=== PATIENT | male | born 1940 | race American Indian/Alaskan Native ===

== ENCOUNTER 2019-10-23 21:18 | Emergency (ER) | payer MEDICARE ==
--- NOTE | 2019-10-23 22:57 | Emergency Department Report ---
ED Fall HPI - General Chief Complaint: Fall Stated Complaint: GENERAL WEAKNESS Time Seen by Provider: 10/23/19 22:49 Source: patient, EMS Mode of arrival: Stretcher Limitations: No Limitations - History of Present Illness Initial Comments: Mr. Younger is a 79-year-old male with history of schizophrenia hypertension and Parkinson's disease and diabetes mellitus who presents from [facility] after ground-level fall. He walked fell while attempting to go to the bathroom. Since that time he appeared more sluggish than normal. Daughter at bedside states that he is at his baseline. Mr. Younger states he has a mild cramp in his neck. Otherwise he has been in normal state of health. Denies any pain after the fall MD Complaint: fall -: This evening Fall From: standing When Fall Occurred: 1-[address] Fall Occurred: home Loss of Consciousness: none Prolonged Down Time?: no Symptoms Prior to Fall: none Severity: mild Context: tripped/slipped Associated Symptoms: other ("Sluggishness") - Related Data Allergies Allergy/AdvReac Type Severity Reaction Status Date / Time No Known Allergies Allergy Unverified 07/17/14 14:31 ED Review of Systems ROS: Stated complaint: GENERAL WEAKNESS Other details as noted in HPI Comment: All other systems reviewed and negative Constitutional: denies: fever, malaise Respiratory: denies: cough Cardiovascular: denies: chest pain Gastrointestinal: denies: abdominal pain Neurological: denies: headache, numbness, paresthesias ED Past Medical Hx - Past Medical History Previous Medical History?: Yes Hx Hypertension: Yes Hx Diabetes: Yes Hx Psychiatric Treatment: Yes (schizophrenia paranoid) Hx Dementia: Yes Additional medical history: parkinsons - Social History Smoking Status: Current Every Day Smoker ED Physical Exam - General Limitations: No Limitations General appearance: alert, in no apparent distress, other (GCS 15) - Head Head exam: Present: atraumatic, normocephalic - Eye Eye exam: Present: normal appearance, PERRL. Absent: scleral icterus, conjun ctival injection - ENT ENT exam: Present: mucous membranes moist - Neck Neck exam: Present: normal inspection, full ROM. Absent: tenderness, meningismus - Respiratory Respiratory exam: Present: normal lung sounds bilaterally. Absent: respiratory distress, wheezes, rales, rhonchi - Cardiovascular Cardiovascular Exam: Present: regular rate, normal rhythm, normal heart sounds. Absent: rubs, gallop - GI/Abdominal GI/Abdominal exam: Present: soft. Absent: distended, tenderness, guarding, rebound - Extremities Exam Extremities exam: Present: normal inspection - Back Exam Back exam: Present: normal inspection - Neurological Exam Neurological exam: Present: alert, oriented X3 - Psychiatric Psychiatric exam: Present: normal affect, normal mood - Skin Skin exam: Present: warm, dry, intact, normal color. Absent: rash ED Course Vital Signs 10/23/19 22:20 Temperature 98.3 F Pulse Rate 52 L Respiratory 18 Rate Blood Pressure 155/84 [Left] O2 Sat by Pulse 97 Oximetry ED Medical Decision Making - Lab Data Result diagrams: 10/23/19 23:00 10/23/19 23:00 - Radiology Data Radiology results: report reviewed CT head, CT cervical spine: No acute findings according to radiology Radiologist impression of CT head and cervical spine CT cervical spine no acute fracture seen in the cervical spine, diffuse cervical spondylosis no soft tissue swelling no spinal canal stenosis, positive emphysematous changes noted in the lung apices CT head: No acute intracranial abnormality - Medical Decision Making Mr. Younger presents after a ground-level fall. CT head and C-spine CBC chemistry all within acceptable limits. No evidence of acute traumatic injury after evaluation performed here in emergency department. No evidence of acute medical condition. Discharged home in stable condition. CBC chemistry unremarkable with exception of mild thrombocytopenia. Critical care attestation.: If time is entered above; I have spent that time in minutes in the direct care of this critically ill patient, excluding procedure time. ED Disposition Clinical Impression: Fall Disposition: DC-01 TO HOME OR SELFCARE Is pt being admited?: No Does the pt Need Aspirin: No Condition: Stable Instructions: Fall Prevention for Older Adults (ED) Referrals: PRIMARY CARE, [Referring] - 3-5 Days
[2019-10-23 23:11] LABS: Basophils # (Auto) 0.1 K/mm3 (0.0-0.1); Basophils % (Auto) 0.6 % (0.0-1.8); Eosinophils # (Auto) 0.2 K/mm3 (0.0-0.4); Eosinophils % (Auto) 2.2 % (0.0-4.3); Hematocrit 42.4 % (35.5-45.6); Hemoglobin 14.9 gm/dl (11.8-15.2); Lymphocytes # (Auto) 3.4 K/mm3 (1.2-5.4); Lymphocytes % (Auto) 35.7 % (13.4-35.0); Mean Corpuscular HGB Conc 35 % (32-34); Mean Corpuscular Volume 95 fl (84-94); Monocytes # (Auto) 1.3 K/mm3 (0.0-0.8); Monocytes % (Auto) 13.8 % (0.0-7.3); Red Blood Count 4.47 M/mm3 (3.65-5.03); Red Cell Distribution Width 13.4 % (13.2-15.2)
[2019-10-23 23:30] LABS: BUN/Creatinine Ratio 8; Blood Urea Nitrogen 10 mg/dL (9-20); Calcium 8.8 mg/dL (8.4-10.2); Hemolysis Index 28
[2019-10-23 23:52] LABS: Platelet Count 84 K/mm3 (140-440)
--- NOTE | 2019-10-23 23:57 | Cat Scan Report ---
CT cervical spine wo con INDICATION: fall neck pain. TECHNIQUE: All CT scans at this location are performed using the following dose modulation technique: Automated exposure control. COMPARISON: None available. FINDINGS: No acute fracture is seen in the cervical spine. There is diffuse cervical spondylosis. No prevertebr al soft tissue swelling is seen. No spinal canal stenosis is seen. Emphysematous changes are noted wi thin the lung apices. Paraspinous musculature is unremarkable. IMPRESSION: 1. No acute fracture is seen in the cervical spine. Signer Name: Krishan Reyez MD Signed: 10/23/2019 11:53 PM Workstation Name: [id number]
--- NOTE | 2019-10-24 00:01 | Cat Scan Report ---
CT HEAD WITHOUT CONTRAST INDICATION: fall sluggish elderly. TECHNIQUE: All CT scans at this location are performed using CT dose reduction for ALARA by means of automated e xposure control. COMPARISON: None available. FINDINGS: HEMORRHAGE: None. EXTRA-AXIAL SPACES: Normal in size and morphology for the patient's age. VENTRICULAR SYSTEM: Normal in size and morphology for the patient's age. BRAIN PARENCHYMA: No acute findings. MIDLINE SHIFT OR HERNIATION: None. ORBITS: Normal as visualized. SOFT TISSUES OF HEAD: Normal. CALVARIUM: Normal. VISUALIZED PARANASAL SINUSES AND MASTOID AIR CELLS: Clear. ADDITIONAL FINDINGS: None. IMPRESSION: 1. No acute intracranial abnormality. Signer Name: Krishan Reyez MD Signed: 10/23/2019 11:56 PM Workstation Name: [id number]
[2019-10-24 01:47] VITALS: BP 147/86
== END 2019-10-24 01:46 | disposition home or self-care (01) ==
LOC: ED 21:18
DX: R25.2 Cramp and spasm (principal); E11.9 Type 2 diabetes mellitus without complications; I10 Essential (primary) hypertension; F20.9 Schizophrenia, unspecified; G31.83 Neurocognitive disorder with Lewy bodies; F02.80 Dementia in other diseases classified elsewhere, unspecified severity, without behavioral disturbance, psychotic disturbance, mood disturbance, and anxiety; W18.39XA Other fall on same level, initial encounter; Y93.89 Activity, other specified; Y92.098 Other place in other non-institutional residence as the place of occurrence of the external cause; Y99.8 Other external cause status
CPT/HCPCS: 36415; 70450; 72125; 80048; 85025

== ENCOUNTER 2020-07-12 17:31 | Emergency (ER) | payer MEDICARE ==
--- NOTE | 2020-07-12 20:15 | Emergency Department Report ---
ED Neck Pain/Injury HPI - General Chief Complaint: Neck Pain/Injury Stated Complaint: NECK PAIN Time Seen by Provider: 07/12/20 20:03 Source: patient Mode of arrival: Stretcher Limitations: Altered Mental Status - History of Present Illness Initial Comments: Patient is a 79-year-old male that presents emergency room for a fall and neck pain. Patient states he fell at 5 PM today. Patient states he is having some stiffness in his neck. Patient denies loss of consciousness.. Patient states his pain is mild to moderate. Patient states is an aching pain. Patient states he just feels stiff. Patient denies fever and chills. Patient denies loss of consciousness. Patient denies head injury. Patient denies headache. Patient denies difficulties moving. Patient has history of dementia, schizophrenia, hypertension, hyperlipidemia, diabetes,. Patient presents ER with his records from his halfway. Patient is coming from [facility]. Patient brought in by EMS. Patient denies recent travel. Patient denies recent international travel. Patient denies exposure to the novel coronavirus. Patient denies sick contacts. Patient denies fever and chills. Patient denies cough. Patient denies diarrhea. Patient denies coming in contact with anybody with symptoms of the novel coronavirus. MD Complaint: neck pain, neck injury -: Sudden Place: home Severity: mild, moderate, constant Quality: aching Consistency: constant Improves With: rest supine, remaining still Worsens With: movement of neck Context: fall Associated Symptoms: denies: headache, fever, numbness, tingling, weakness, vertigo, difficulty walking, swollen glands, difficulty swallowing, nausea, vomiting Treatments Prior to Arrival: none - Related Data Previous Rx's Medication Instructions Recorded Last Taken Type Cyclobenzaprine HCl [Flexeril 5 MG 5 mg PO TID PRN #20 tab 07/12/20 Unknown Rx TAB] Allergies Allergy/AdvReac Type Severity Reaction Status Date / Time No Known Allergies Allergy Unverified 07/17/14 14:31 ED Review of Systems ROS: Stated complaint: NECK PAIN Other details as noted in HPI Constitutional: denies: chills, fever Eyes: denies: eye pain, eye discharge, vision change ENT: denies: ear pain, throat pain Respiratory: denies: cough, shortness of breath, wheezing Cardiovascular: denies: chest pain, palpitations Endocrine: no symptoms reported Gastrointestinal: denies: abdominal pain, nausea, diarrhea Genitourinary: denies: urgency, dysuria Musculoskeletal: denies: back pain, joint swelling, arthralgia Skin: denies: rash, lesions Neurological: denies: headache, weakness, paresthesias Psychiatric: denies: anxiety, depression Hematological/Lymphatic: denies: easy bleeding, easy bruising ED Past Medical Hx - Past Medical History Previous Medical History?: Yes Hx Hypertension: Yes Hx Diabetes: Yes (neuropathy) Hx Psychiatric Treatment: Yes (schizophrenia paranoid) Hx Dementia: Yes Additional medical history: parkinsons - Surgical History Past Surgical History?: No - Family History Family history: no significant - Social History Smoking Status: Unknown if ever smoked Substance Use Type: None - Medications Home Medications: Home Medications Medication Instructions Recorded Confirmed Last Taken Type Cyclobenzaprine HCl [Flexeril 5 MG 5 mg PO TID PRN #20 tab 07/12/20 Unknown Rx TAB] ED Physical Exam - General Limitations: No Limitations General appearance: alert, in no apparent distress - Head Head exam: Present: atraumatic, normocephalic - Eye Eye exam: Present: normal appearance, PERRL Pupils: Present: normal accommodation - ENT ENT exam: Present: normal exam, mucous membranes moist, TM's normal bilaterally, normal external ear exam - Neck Neck exam: Present: normal inspection, full ROM. Absent: tenderness, meningismus, lymphadenopathy, thyromegaly - Respiratory Respiratory exam: Present: normal lung sounds bilaterally. Absent: respiratory distress, wheezes, rales - Cardiovascular Cardiovascular Exam: Present: regular rate, normal rhythm. Absent: systolic murmur, diastolic murmur, rubs, gallop - GI/Abdominal GI/Abdominal exam: Present: soft, normal bowel sounds. Absent: distended, tenderness, guarding, rebound - Rectal Rectal exam: Present: deferred - Extremities Exam Extremities exam: Present: normal inspection - Back Exam Back exam: Present: normal inspection, full ROM. Absent: tenderness, CVA tenderness (R), CVA tenderness (L), muscle spasm, paraspinal tenderness, vertebral tenderness - Neurological Exam Neurological exam: Present: alert, oriented X3, CN II-XII intact, reflexes normal. Absent: motor sensory deficit - Psychiatric Psychiatric exam: Present: normal affect, normal mood - Skin Skin exam: Present: warm, dry, intact, normal color. Absent: rash ED Course Vital Signs 07/12/20 07/12/20 07/12/20 18:34 18:38 18:42 Temperature 99.4 F Pulse Rate 63 Respiratory 15 16 Rate Blood Pressure Blood Pressure 147/87 [Left] O2 Sat by Pulse 98 Oximetry 07/12/20 07/12/20 07/12/20 18:45 19:00 19:30 Temperature Pulse Rate 78 Respiratory 12 15 Rate Blood Pressure 147/87 137/91 136/84 Blood Pressure [Left] O2 Sat by Pulse 98 96 96 Oximetry 07/12/20 07/12/20 07/12/20 20:01 20:30 21:23 Temperature Pulse Rate 56 L Respiratory 16 Rate Blood Pressure 135/88 134/83 Blood Pressure 105/75 [Left] O2 Sat by Pulse 96 94 98 Oximetry - Reevaluation(s) Reevaluation #1: I discussed all results and clinical findings with patient. I discussed plan of care with patient. Patient agrees with plan of care. Patient is stable for discharge. Patient will be discharged home. Patient given discharge instr uctions. Patient voiced understanding of discharge instructions. 07/12/20 23:40 ED Medical Decision Making - Radiology Data Radiology results: report reviewed Cervical spine 3 views INDICATION: Neck pain following injury IMPRESSION: Multilevel discogenic and uncovertebral arthropathy with disc osteophyte complex at C6- C7 which may cause slight spinal canal narrowing. The open mouth odontoid view is suboptimal and pathology cannot be excluded in this region. CT cervical spine wo con INDICATION / CLINICAL INFORMATION: neck pain. fall. TECHNIQUE: Axial CT imaging of the cervical spine was obtained without contrast. Coronal and sagittal reformatted imaging obtained and reviewed. All CT scans at this location are performed using CT dose reduction for ALARA by means of automated exposure control. COMPARISON: Cervical spine radiographs obtained earlier today. Priors CT cervical spine 10/23/2019. FINDINGS: No cervical spine fracture or traumatic malalignment. There is diffuse spondylytic change with prominent facet degenerative change throughout the spine. Severe degenerative changes also present in the C1-C2 joint. Paravertebral soft tissues are unremarkable. Visualized lung apices demonstrate emphysematous change. IMPRESSION: 1. No visible fracture or suggestion of traumatic malalignment. 2. Prominent diffuse spondylytic change throughout the spine. - Medical Decision Making Patient is a 79-year-old male that presents emergency room with complaints of neck pain after a fall. Patient fell at his assisted living and was sent here for evaluation. Patient planes of neck pain. Patient had a cervical spine x- ray which was negative but had inconclusive findings on C1 and C2. Patient then had a CT scan to fully evaluate the neck. Patient CT scan of the neck was negative for acute findings. Patient stable for discharge. Patient discharged home. Patient given discharge instructions. - Differential Diagnosis Sprain, strain, fracture, contusion, neck pain, fall Critical care attestation.: If time is entered above; I have spent that time in minutes in the direct care of this critically ill patient, excluding procedure time. ED Disposition Clinical Impression: Neck pain Acute cervical sprain Qualifiers: Encounter type: initial encounter Qualified Code(s): S13.9XXA - Sprain of joints and ligaments of unspecified parts of neck, initial encounter Fall Qualifiers: Encounter type: initial encounter Qualified Code(s): W19.XXXA - Unspecified fall, initial encounter Disposition: TO HOME OR SELFCARE Is pt being admited?: No Does the pt Need Aspirin: No Condition: Stable Instructions: Cervical Sprain, [id number] Additional Instructions: Patient to follow-up with primary care in 2 to 3 days. Patient to follow-up with orthopedist in 2 to 3 days. Patient to rest. Patient to increase water. Patient to take Tylenol or ibuprofen as needed for pain. Patient to return to the ER if condition worsens, changes or new symptoms arise. Prescriptions: Cyclobenzaprine HCl [Flexeril 5 MG TAB] 5 mg PO TID PRN #20 tab PRN Reason: Muscle Spasm Referrals: ERI DOVER MD [Primary Care Provider] - 2-3 Days TANIA CHIN MD [Staff Physician] - 2-3 Days Time of Disposition: 23:42
--- NOTE | 2020-07-12 21:05 | XRay Report ---
Cervical spine 3 views INDICATION: Neck pain following injury IMPRESSION: Multilevel discogenic and uncovertebral arthropathy with disc osteophyte complex at C6-C7 which may cause slight spinal canal narrowing. The open mouth odontoid view is suboptimal and pathol ogy cannot be excluded in this region. Signer Name: Leonardo Ford MD Signed: 07/12/2020 9:00 PM Workstation Name: [id number]
[2020-07-12 21:23] VITALS: BP 105/75
--- NOTE | 2020-07-12 23:18 | Cat Scan Report ---
CT cervical spine wo con INDICATION / CLINICAL INFORMATION: neck pain. fall. TECHNIQUE: Axial CT imaging of the cervical spine was obtained without contrast. Coronal and sagittal reformatte d imaging obtained and reviewed. All CT scans at this location are performed using CT dose reduction for ALARA by means of automated exposure control. COMPARISON: Cervical spine radiographs obtained earlier today. Priors CT cervical spine 10/23/2019. FINDINGS: No cervical spine fracture or traumatic malalignment. There is diffuse spondylytic change with promin ent facet degenerative change throughout the spine. Severe degenerative changes also present in the C 1-C2 joint. Paravertebral soft tissues are unremarkable. Visualized lung apices demonstrate emphysematous change. IMPRESSION: 1. No visible fracture or suggestion of traumatic malalignment. 2. Prominent diffuse spondylytic change throughout the spine. Signer Name: Nina York MD Signed: 07/12/2020 11:13 PM Workstation Name: [id number]
== END 2020-07-13 04:30 | disposition home or self-care (01) ==
LOC: ED 17:31
DX: S13.9XXA Sprain of joints and ligaments of unspecified parts of neck, initial encounter (principal); M54.2 Cervicalgia; I10 Essential (primary) hypertension; E11.9 Type 2 diabetes mellitus without complications; F20.0 Paranoid schizophrenia; F03.90 Unspecified dementia, unspecified severity, without behavioral disturbance, psychotic disturbance, mood disturbance, and anxiety; Z79.899 Other long term (current) drug therapy; W19.XXXA Unspecified fall, initial encounter; Y93.89 Activity, other specified; Y92.89 Other specified places as the place of occurrence of the external cause; Y99.8 Other external cause status
CPT/HCPCS: 72040; 72125